=== PATIENT | female | born 1955 | race Caucasian/White ===

== ENCOUNTER 2025-08-23 10:39 | Inpatient (IN) | payer MEDICARE, OTHER ==
[~2025-08-23] VITALS: Ht 165.1 cm; Wt 114.1 kg
[2025-08-23 10:44] VITALS: BP 140/86
[2025-08-23] MEDS ORDERED: ACET-3752 PO (11:02)
[2025-08-23] MEDS ORDERED: ERTA1VIA4 IV (11:02)
[2025-08-23] MEDS ORDERED: ITRA100C3 PO (11:02)
[2025-08-23] MEDS ORDERED: MAGN400O6 PO (11:02)
[2025-08-23] MEDS ORDERED: DIVA250T2 PO (11:02)
[2025-08-23] MEDS ORDERED: EMPA10TA PO (11:02)
[2025-08-23] MEDS ORDERED: MAG-55 PO (11:02)
[2025-08-23] MEDS ORDERED: HYDR-5156 PO (11:02)
[2025-08-23] MEDS ORDERED: MELA3TAB47 PO (11:02)
[2025-08-23] MEDS ORDERED: MULT-594 PO (11:02)
[2025-08-23] MEDS ORDERED: [UNRECOGNIZED DRUG - CODE] IN (11:02)
[2025-08-23] MEDS ORDERED: GLIP5TAB23 PO (11:02)
[2025-08-23] MEDS ORDERED: LEVO100T10 PO (11:02)
[2025-08-23] MEDS ORDERED: TRAZ-257 PO (11:03)
[2025-08-23] MEDS ORDERED: CHOL10005 PO (11:03)
[2025-08-23] MEDS ORDERED: VENL75CA62 PO (11:03)
[2025-08-23 11:09] LABS: PLATELET COUNT (AUTO) 296 K/uL (179-408); RED BLOOD CELL COUNT(AUTO) 3.83 MIL/uL (3.63-4.92); RED CELL DISTRIBUTION WIDTH 15.7 % (12.3-17.7); WHITE BLOOD COUNT (AUTO) 6.7 K/uL (3.8-11.8)
[2025-08-23 11:16] LABS: *BILIRUBIN,URIN NEGATIVE (NEGATIVE); *CLARITY,URINE CLEAR (CLEAR); *COLOR,URINE YELLOW (YELLOW); *KETONES,URINE NEGATIVE (NEGATIVE); *PROTEIN,URINE NEGATIVE (NEGATIVE); *UROBILINOGEN,URINE 0.2 E.U./dl (NORMAL); LEUKOCYTE ESTERASE ,URINE TRACE (NEGATIVE); NITRITE, URINE NEGATIVE (NEGATIVE); UGLUCOSE NEGATIVE (NEGATIVE)
[2025-08-23 11:22] LABS: *BLOOD, URINE TRACE (NEGATIVE)
[2025-08-23] MEDS ORDERED: MEROPENEM 1GM/NS 100ML IVPB **ER PYXIS ONLY IV ONE (11:22)
[2025-08-23 11:24] LABS: SQUAMOUS EPITHELIAL CELL,UR FEW /HPF (NONE SEEN); URINE AMORPHOUS URATE FEW /HPF
[2025-08-23 11:25] LABS: ETHANOL < 3 MG/DL (0-10)
[2025-08-23 11:26] LABS: CREATININE 1.3 mg/dL (0.6-1.3); SODIUM SERUM 144 mmol/L (136-145); UREA NITROGEN, BLOOD 23 mg/dL (7-18)
[2025-08-23 11:26] LABS: *AMPHETAMINE, URINE NEGATIVE (NEGATIVE); *BARBITURATE, URINE NEGATIVE (NEGATIVE); *BENZODIAZEPINE, URINE NEGATIVE (NEGATIVE); *CANNABINOID, URINE NEGATIVE (NEGATIVE); *COCCAINE, URINE NEGATIVE (NEGATIVE); *OPIATE, URINE NEGATIVE (NEGATIVE); *PHENCYCLIDINE SCREEN,URINE NEGATIVE (NEGATIVE); FENTANYL, URINE NEGATIVE (NEGATIVE)
[2025-08-23] MEDS: IV NORMAL SALINE 1000 ML BAG IV ONE (11:30)
[2025-08-23 11:42] LABS: ASPARTATE AMINOTRANSFERASE 12 U/L (15-37); TOTAL PROTEIN, SERUM 7.2 g/dL (6.4-8.2)
[2025-08-23] MEDS ORDERED: DEXTROSE 50% 50 ML DISP.SYRIN IV PRN (11:45)
[2025-08-23] MEDS ORDERED: ACETAMINOPHEN 325 MG TABLET PO PRN (11:45)
[2025-08-23] MEDS ORDERED: MORPHINE SULFATE 2 MG/1 ML DISP.SYRIN IVP PRN (11:45)
[2025-08-23] MEDS ORDERED: INSULIN REGULAR, HUMAN 300 UNITS/3 ML VIAL SQ PRN (11:45)
[2025-08-23] MEDS ORDERED: ONDANSETRON 4 MG/2 ML VIAL IV PRN (11:45)
[2025-08-23] MEDS: MEROPENEM 1,000 MG in IV NORMAL SALINE 100 ML IV ONE (11:50)
[2025-08-23] MEDS ORDERED: DIVA-158 PO (14:03)
[2025-08-23] MEDS ORDERED: DIVALPROEX 250 MG TABLET.DR PO SCH (14:06)
[2025-08-23] MEDS: DIVALPROEX 250 MG TABLET.DR PO SCH (14:07)
[2025-08-23] MEDS ORDERED: INSU100V28 SQ (14:16)
[2025-08-23] MEDS ORDERED: HYDR453. TP (14:17)
[2025-08-23] MEDS ORDERED: MULT-365 PO (14:20)
[2025-08-23] MEDS: IV NS 1000 ML 1,000 ML IV SCH (14:21)
[2025-08-23 14:22] VITALS: BP 114/79; TEMP 98
[2025-08-23 16:00] VITALS: BP 165/75; TEMP 97.9; O2SAT 99
[2025-08-23] MEDS: DOCUSATE SODIUM 100 MG CAPSULE PO SCH (16:09)
[2025-08-23] MEDS: BLOOD SUGAR DIAGNOSTIC 1 EACH STRIP VI SCH (16:09)
[2025-08-23 20:35] VITALS: BP 163/65; TEMP 98; O2SAT 98
[2025-08-23] MEDS: TRAZODONE 100 MG TABLET PO SCH (20:45)
[2025-08-23] MEDS: HEPARIN SODIUM,PORCINE 5,000 UNITS/ML VIAL SQ SCH (20:48)
[2025-08-23] MEDS: MEROPENEM 1 G in IV NORMAL SALINE 100 ML IV SCH (23:28)
[2025-08-24 05:10] VITALS: BP 154/70; TEMP 98.2; O2SAT 95
[2025-08-24 06:46] LABS: PLATELET COUNT (AUTO) 281 K/uL (179-408); RED BLOOD CELL COUNT(AUTO) 3.62 MIL/uL (3.63-4.92); RED CELL DISTRIBUTION WIDTH 15.8 % (12.3-17.7); WHITE BLOOD COUNT (AUTO) 6.8 K/uL (3.8-11.8)
[2025-08-24 06:59] LABS: ASPARTATE AMINOTRANSFERASE 9.0 U/L (15-37); CREATININE 1.3 mg/dL (0.6-1.3); SODIUM SERUM 140.0 mmol/L (136-145); TOTAL PROTEIN, SERUM 6.2 g/dL (6.4-8.2); UREA NITROGEN, BLOOD 21.0 mg/dL (7-18)
[2025-08-24] MEDS: LEVOTHYROXINE SODIUM 100 MCG TABLET PO SCH (07:05)
[2025-08-24] MEDS: CHOLECALCIFEROL 1,000 UNIT TABLET PO SCH (08:57)
[2025-08-24] MEDS: TERBINAFINE 250 MG TABLET PO SCH (08:59)
[2025-08-24] MEDS: VENLAFAXINE XR 75 MG TAB.ER.24H PO SCH (08:59)
[2025-08-24] MEDS: MIRALAX 17 GM POWD.PACK PO SCH (09:00)
[2025-08-24] MEDS ORDERED: EMPAGLIFLOZIN 10 MG TABLET PO SCH (09:00)
[2025-08-24 10:56] VITALS: BP 144/49; TEMP 97.6; O2SAT 93
[2025-08-24] MEDS: KETOCONAZOLE 2% CREAM 30 GM TUBE TP SCH (11:27)
[2025-08-24] MEDS: INSULIN REGULAR, HUMAN 1000 UNIT/10 ML VIAL SQ PRN (11:39)
[2025-08-24 18:10] VITALS: BP 156/75; TEMP 97.6; O2SAT 97
[2025-08-24 19:58] VITALS: BP 153/71; TEMP 97.9; O2SAT 95
[2025-08-25 04:29] VITALS: BP 175/77; TEMP 97.7; O2SAT 95
[2025-08-25 06:49] LABS: PLATELET COUNT (AUTO) 288 K/uL (179-408); RED BLOOD CELL COUNT(AUTO) 3.81 MIL/uL (3.63-4.92); RED CELL DISTRIBUTION WIDTH 15.9 % (12.3-17.7); WHITE BLOOD COUNT (AUTO) 7.0 K/uL (3.8-11.8)
[2025-08-25 07:20] LABS: CREATININE 1.2 mg/dL (0.6-1.3); SODIUM SERUM 145.0 mmol/L (136-145); UREA NITROGEN, BLOOD 19.0 mg/dL (7-18)
[2025-08-25 07:38] VITALS: BP 127/61
[2025-08-25] MEDS: FLUTICASONE PROP NASAL SPRAY 16 GM BOTTLE NS SCH (10:32)
[2025-08-25 10:40] VITALS: BP 131/58; TEMP 97.9; O2SAT 96
[2025-08-25 15:19] VITALS: BP 155/76; TEMP 97.5; O2SAT 95
[2025-08-25 16:01] VITALS: BP 148/72
[2025-08-25 19:00] VITALS: BP 149/72; TEMP 98.2; O2SAT 95
[2025-08-26 04:00] VITALS: BP 150/70; TEMP 97.6; O2SAT 97
[2025-08-26 11:24] VITALS: BP 134/65; TEMP 97.8; O2SAT 94
== END 2025-08-26 12:00 | DRG 689 ==
LOC: ER 10:39 → MEDSURG3 12:58
PROVIDERS: ADMIT Internal Medicine; ATTEND Internal Medicine
PROC: 05HC33Z Insertion of Infusion Device into Left Basilic Vein, Percutaneous Approach (ICD-10-PCS; principal; 2025-08-23)
DX: N39.0 Urinary tract infection, site not specified (principal); G93.41 Metabolic encephalopathy; F31.4 Bipolar disorder, current episode depressed, severe, without psychotic features; E88.09 Other disorders of plasma-protein metabolism, not elsewhere classified; B35.3 Tinea pedis; D64.9 Anemia, unspecified; B35.1 Tinea unguium; B96.20 Unspecified Escherichia coli [E. coli] as the cause of diseases classified elsewhere; I12.9 Hypertensive chronic kidney disease with stage 1 through stage 4 chronic kidney disease, or unspecified chronic kidney disease; E11.22 Type 2 diabetes mellitus with diabetic chronic kidney disease; E66.9 Obesity, unspecified; E03.9 Hypothyroidism, unspecified; N18.9 Chronic kidney disease, unspecified; Z16.12 Extended spectrum beta lactamase (ESBL) resistance; Z68.41 Body mass index [BMI] 40.0-44.9, adult; E78.5 Hyperlipidemia, unspecified; Z87.440 Personal history of urinary (tract) infections; N20.0 Calculus of kidney; Z79.84 Long term (current) use of oral hypoglycemic drugs; Z79.890 Hormone replacement therapy
CPT/HCPCS: 36415; 71045; 76770; 83605; 83735; 84100; 84443; 84484; 85025; 85730; 87040; 87086; G0378; G0480; J1644; J1815; J2185; J3490; J3535; J7040